=== PATIENT | female | born 1995 | race Caucasian/White ===

== ENCOUNTER 2020-12-08 13:35 | Outpatient (CLI) | payer OTHER ==
[2020-12-09 12:26] LABS: MUDS CUTOFF CONCENTRATIONS CUTOFF CONC BELOW:
[2020-12-09 12:36] LABS: BILIRUBIN,URINE NEGATIVE (NEGATIVE); GLUCOSE, URINE (UA) NEGATIVE (NEGATIVE); KETONES,URINE (UA) NEGATIVE (NEGATIVE); LEUKOCYTE ESTERASE, URINE NEGATIVE (NEGATIVE); NITRITE,URINE NEGATIVE (NEGATIVE); OCCULT BLOOD,URINE NEGATIVE (NEGATIVE); PROTEIN,URINE NEGATIVE (NEGATIVE); UROBILINOGEN,URINE 0.2 (NORMAL) E.U./dL (NORMAL)
[2020-12-09 12:41] LABS: CLARITY,URINE CLEAR (CLEAR)
[2020-12-09 12:48] LABS: BACTERIA,URINE None Seen /HPF (None Seen); RBC,URINE None Seen /HPF (0-5); SQUAMOUS EPITHELIAL CELL,UR RARE Squamous (<= Few)
[2020-12-09 12:49] LABS: AMPHETAMINE SCREEN,URINE NEGATIVE (NEGATIVE); BENZODIAZEPINES SCREEN, URINE NEGATIVE (NEGATIVE); COCAINE SCREEN URINE NEGATIVE (NEGATIVE); METHADONE SCREEN, URINE NEGATIVE (NEGATIVE); METHAMPHETAMINES SCREEN, URINE NEGATIVE (NEGATIVE); OPIATE SCREEN, URINE NEGATIVE (NEGATIVE); OXYCODONE SCREEN, URINE NEGATIVE (NEGATIVE); PROPOXYPHENE SCREEN, URINE NEGATIVE (NEGATIVE); TRICYCLIC ANTIDEPRESSANT,URINE NEGATIVE (NEGATIVE)
== END 2020-12-08 23:59 | disposition home or self-care (01) ==
LOC: LAB 13:35
PROVIDERS: ATTEND Advanced Practice Midwife
DX: Z34.90 Encounter for supervision of normal pregnancy, unspecified, unspecified trimester (principal)
CPT/HCPCS: 80306; 81001; 87086

== ENCOUNTER 2020-12-19 11:16 | Emergency (ER) | payer OTHER ==
[2020-12-19 11:54] LABS: BASOPHILS % (AUTO) 0.2 %; EOSINOPHILS # (AUTO) 0.1 10^3/uL (0.0-0.7); HGB - HEMOGLOBIN 13.1 g/dL (12.0-16.0); LYMPHOCYTES # (AUTO) 1.2 10^3/uL (1.5-3.5); LYMPHOCYTES % (AUTO) 13.4 %; MEAN CORPUSCULAR HEMOGLOBIN 33.8 pg (27.0-31.0); MEAN CORPUSCULAR VOLUME 99.2 fL (81.0-99.0); MEAN PLATELET VOLUME 10.4 fL (7.9-10.8); MONOCYTES # (AUTO) 0.6 10^3/uL (0.0-1.0); MONOCYTES % (AUTO) 7.4 %; NEUTROPHILS # (AUTO) 6.7 10^3/uL (1.5-6.6); NEUTROPHILS % (AUTO) 77.7 %; PLT - PLATELET COUNT 257 10^3/uL (130-450); RED BLOOD COUNT 3.88 10^6/uL (4.20-5.40); RED CELL DISTRIBUTION WIDTH 12.7 % (12.0-15.0); WHITE BLOOD COUNT 8.7 x10^3/uL (4.8-10.8)
[2020-12-19 12:12] LABS: ALBUMIN 4.2 g/dL (3.2-5.5); ALBUMIN/GLOBULIN RATIO 1.3 (1.0-2.2); BILIRUBIN,TOTAL 0.7 mg/dL (0.2-1.0); CREATININE 0.4 mg/dL (0.4-1.0); TOTAL PROTEIN 7.4 g/dL (6.7-8.2)
--- NOTE | 2020-12-19 12:16 | ED Physician Documentation ---
History of Present Illness - Stated complaint Stated Complaint: CRAMPING/BLEEDING - Chief complaint Chief Complaint: Abd Pain - History obtained from History obtained from: Patient - History of Present Illness Timing: Today Pain level max: 4 Pain level now: 3 - Additonal information Additional information: Patient is a 25-year-old female, 1 para 0 presents to the emergency department with heavy vaginal bleeding since last night. She states she has passed several large clots. She states the bleeding is currently decreasing. Mild abdominal cramping. Nothing makes it better or worse. No fevers. No chills. No vomiting. Review of Systems Constitutional: denies: Fever, Chills Respiratory: denies: Cough GI: denies: Vomiting, Diarrhea Skin: denies: Rash Musculoskeletal: denies: Neck pain, Back pain PD PAST MEDICAL HISTORY - Past Medical History Past Medical History: No - Past Surgical History Past Surgical History: No - Present Medications Home Medications: Ambulatory Orders Medication Instructions Recorded Confirmed Pnv No.95/Ferrous Fum/Folic AC 1 each PO DAILY 12/19/20 12/19/20 [ [place]] - Allergies Allergies/Adverse Reactions: Allergies Allergy/AdvReac Type Severity Reaction Status Date / Time No Known Drug Allergies Allergy Verified 12/19/20 11:21 - Living Situation Living Situation: reports: With family Living Arrangement: reports: At home - Social History Does the pt have substance abuse?: No PD ED PE NORMAL - Vitals Vital signs reviewed: Yes - General General: Alert and oriented X 3, No acute distress - HEENT HEENT: Moist mucous membranes - Neck Neck: Supple, no meningeal sign - Cardiac Cardiac: RRR - Respiratory Respiratory: No respiratory distress, Clear bilaterally - Abdomen Abdomen: Soft, Non tender, Non distended - Derm Derm: Warm and dry - Extremities Extremities: No edema, No calf tenderness / cord - Neuro Neuro: Alert and oriented X 3 - Psych Psych: Normal mood, Normal affect Results - Vitals Vitals: Vital Signs - 24 hr 12/19/20 12/19/20 11:17 13:20 Temperature 36.8 C Heart Rate 73 79 Respiratory 15 16 Rate Blood Pressure 126/65 100/60 O2 Saturation 100 99 Oxygen O2 Source Room air - Labs Labs: Laboratory Tests 12/19/20 12/19/20 12/19/20 11:35 11:35 11:35 WBC 8.7 RBC 3.88 L Hgb 13.1 Hct 38.5 MCV 99.2 H MCH 33.8 H MCHC 34.0 RDW 12.7 Plt Count 257 MPV 10.4 Neut # (Auto) 6.7 H Lymph # (Auto) 1.2 L [place] # (Auto) 0.6 Eos # (Auto) 0.1 Baso # (Auto) 0.0 Absolute Nucleated RBC 0.00 Nucleated RBC % 0.0 Sodium 136 Potassium 3.6 Chloride 99 L Carbon Dioxide 24 Anion Gap 13.0 BUN 6 Creatinine 0.4 Estimated GFR (MDRD) 196 Glucose 92 Calcium 9.0 Total Bilirubin 0.7 AST 20 ALT 30 Alkaline Phosphatase 51 Total Protein 7.4 Albumin 4.2 Globulin 3.2 Albumin/Globulin Ratio 1.3 Lipase 24 HCG, Quant 41848.00 Urine Color Urine Clarity Urine pH Ur Specific Bode Urine Protein Urine Glucose (UA) Urine Ketones Urine Occult Blood Urine Nitrite Urine Bilirubin Urine Urobilinogen Ur Leukocyte Esterase Urine RBC Urine WBC Ur Squamous Epith Cells Urine Bacteria Urine Mucus Ur Microscopic Review Urine Culture Comments 12/19/20 12:44 WBC RBC Hgb Hct MCV MCH MCHC RDW Plt Count MPV Neut # (Auto) Lymph # (Auto) [place] # (Auto) Eos # (Auto) Baso # (Auto) Absolute Nucleated RBC Nucleated RBC % Sodium Potassium Chloride Carbon Dioxide Anion Gap BUN Creatinine Estimated GFR (MDRD) Glucose Calcium Total Bilirubin AST ALT Alkaline Phosphatase Total Protein Albumin Globulin Albumin/Globulin Ratio Lipase HCG, Quant Urine Color YELLOW Urine Clarity CLEAR Urine pH 8.5 H Ur Specific [place]ode 1.015 Urine Protein NEGATIVE Urine Glucose (UA) NEGATIVE Urine Ketones NEGATIVE Urine Occult Blood MODERATE H Urine Nitrite NEGATIVE Urine Bilirubin NEGATIVE Urine Urobilinogen 0.2 (NORMAL) Ur Leukocyte Esterase NEGATIVE Urine RBC 11-25 H Urine WBC 0-3 Ur Squamous Epith Cells FEW Squamous Urine Bacteria Few Urine Mucus Few Strands Ur Microscopic Review INDICATED Urine Culture Comments NOT INDICATED - Rads (name of study) OB ultrasound Radiology: Prelim report reviewed, EMP read contemporaneously, See rad report PD MEDICAL DECISION MAKING - ED course Complexity details: reviewed results, re-evaluated patient, considered differential, d/w patient ED course: 25-year-old female presents to the emergency department with vaginal bleeding in early . Her hCG is approximately 35,000. No evidence of IUP on ultrasound. Likely miscarriage, will repeat the hCG in about 3 days and see if it is increasing or decreasing. We will have her follow-up with the gynecology clinic for further care. Patient counseled regarding signs and symptoms for which I believe and urgent re-evaluation would be necessary. Patient with good understanding of and agreement to plan and is comfortable going home at this ti me This document was made in part using voice recognition software. While efforts are made to proofread this document, sound alike and grammatical errors may occur. No evidence of ectopic at this time. IMPRESSION: No current evidence for an intrauterine or ectopic . This is consistent with of unknown location. Recommend clinical follow-up with repeat ultrasound as clinically warranted. Thickened and heterogeneous appearance of the endometrium this may represent endometrial hematoma. Consider short-term follow-up. Departure - Departure Disposition: 01 Home, Self Care Clinical Impression: Vaginal bleeding affecting early Condition: Good Instructions: ED Miscarriage Poss Follow-Up: your,doctor in 3 days [Other] Comments: [place] [address] [place]. We do not see a on your ultrasound today, this could represent a miscarriage or ectopic . You need to have a repeat HCG in 2-3 days. If this is decreasing, you likely are having a miscarriage, if it is increasing you will need another ultrasound in about a week. Return if you worsen. Discharge Date/Time: 12/19/20 13:44
[2020-12-19 12:56] LABS: BILIRUBIN,URINE NEGATIVE (NEGATIVE); GLUCOSE, URINE (UA) NEGATIVE (NEGATIVE); KETONES,URINE (UA) NEGATIVE (NEGATIVE); LEUKOCYTE ESTERASE, URINE NEGATIVE (NEGATIVE); NITRITE,URINE NEGATIVE (NEGATIVE); OCCULT BLOOD,URINE MODERATE (NEGATIVE); PH,URINE 8.5 PH (5.0-7.5); PROTEIN,URINE NEGATIVE (NEGATIVE); UROBILINOGEN,URINE 0.2 (NORMAL) E.U./dL (NORMAL)
[2020-12-19 13:00] LABS: CLARITY,URINE CLEAR (CLEAR)
[2020-12-19 13:11] LABS: BACTERIA,URINE Few /HPF (None Seen); MUCUS,URINE Few Strands; SQUAMOUS EPITHELIAL CELL,UR FEW Squamous (<= Few)
--- NOTE | 2020-12-19 13:22 | Ultrasound Report ---
PROCEDURE: OB First Trimester w/TV INDICATIONS: vaginal bleeding, 8 weeks EGA OUTSIDE/PRIOR DATING DATA: Last menstrual period (LMP): 10/19/2020. LMP-based estimated date of delivery (DARIN): 07/26/2021. TECHNIQUE: Real-time scanning was performed of the fetus and maternal pelvic organs, with image documentation. Endovaginal scanning was also performed to better visualize the fetus and maternal ovaries. COMPARISON: None FINDINGS: The uterus is anteverted. There is no intrauterine gestational sac identified. The endometrium measur es up to 1.8 cm in greatest diameter and slightly heterogeneous in appearance. The right ovary measures 2.3 x 1.8 x 2.2 cm. No suspicious cystic or solid mass. The left ovary measu res 2.5 x 1.3 x 1.8 cm. Within the left ovary is a heterogeneous cystic lesion measuring 1.2 x 1.6 x 1.3 cm. This demonstrates peripheral vascularity. No free fluid. IMPRESSION: No current evidence for an intrauterine or ectopic . This is consistent with of un known location. Recommend clinical follow-up with repeat ultrasound as clinically warranted. Thickened and heterogeneous appearance of the endometrium this may represent endometrial hematoma. Co nsider short-term follow-up. Reviewed by: Vinicius Wallace DO on 12/19/2020 12:21 PM PATY Approved by: Vinicius Wallace DO on 12/19/2020 12:21 PM PATY Station ID: [id number]
[2020-12-19 13:28] VITALS: BP 100/60
== END 2020-12-19 13:44 | disposition home or self-care (01) ==
LOC: ED 11:16
DX: O20.9 Hemorrhage in early pregnancy, unspecified (principal)
CPT/HCPCS: 36415; 80053; 81001; 81003; 83690; 84702; 85025; 87086; 99284